=== PATIENT | male | born 1980 | race Hispanic/Latino ===

== ENCOUNTER 2022-04-13 20:23 | Emergency (ER) | payer BC ==
[2022-04-13] MEDS ORDERED: ASPIRIN 325 MG TAB ONE (21:14)
[2022-04-13] MEDS ORDERED: LORAZEPAM 1 MG TABLET ONE (21:14)
[2022-04-13] MEDS ORDERED: NA CHLORIDE 0.9% 1,000 ML ONE (21:14)
[2022-04-13 21:59] LABS: Absolute Lymphocytes (CBC) 2.2 K/uL (0.7-4.9); Hematocrit 46.7 % (39.6-49.0); Lymphocytes % 21.3 % (15.3-44.8); MCV 90.3 fL (80-100); MPV 8.5 fL (7.6-11.3); RBC Red Blood Cell Count 5.17 M/uL (4.33-5.43)
--- NOTE | 2022-04-13 22:45 | RAD REPORT ---
EXAM DESCRIPTION: Renato Single View04/13/2022 10:26 pm CLINICAL HISTORY: Chest pain COMPARISON: none FINDINGS: The lungs appear clear of acute infiltrate. The heart is normal size IMPRESSION: No acute abnormalities displayed
[2022-04-13 23:12] LABS: Albumin 3.8 g/dL (3.4-5.0); Bilirubin Total 0.4 mg/dL (0.2-1.0); Protein, Total 8.1 g/dL (6.4-8.2); Troponin High Sensitivity 7.6 pg/mL (<58.9)
[2022-04-13 23:15] LABS: Potassium 3.3 mmol/L (3.5-5.1)
--- NOTE | 2022-04-13 23:19 | ER ---
Nurse's Notes [facility] Name: Diaz Oglesby Age: 41 yrs Sex: Male : 1980 Arrival Date: 04/13/2022 Time: 20:26 Bed 7 Private MD: Diagnosis: Chest pain, unspecified Presentation: 04/13 20:45 Chief complaint: EMS states: Patient reportedly does cocaine and pt did cocaine this kd3 morning that might have been laced. Pt has been having hallucinations and chest pains. Family is concerned that he is having another heart attack. Family members do not know about his cocaine abuse. 20:45 Method Of Arrival: EMS: [facility] kd3 20:57 Coronavirus screen: Vaccine status: Patient reports receiving the 2nd dose of the covid kd3 vaccine. Ebola Screen: No symptoms or risks identified at this time. Initial Sepsis Screen: Does the patient meet any 2 criteria? No. Patient's initial sepsis screen is negative. Does the patient have a suspected source of infection? No. Patient's initial sepsis screen is negative. Risk Assessment: Do you want to hurt yourself or someone else? Patient reports no desire to harm self or others. Onset of symptoms was April 13, 2022. 20:57 Acuity: YOSI 3 kd3 Triage Assessment: 20:57 General: Appears uncomfortable, Behavior is cooperative, anxious. Pain: Complains of kd3 pain in chest. Neuro: Level of Consciousness is awake, alert, obeys commands, Oriented to person, place, time, situation. Cardiovascular: Patient's skin is warm and dry. Cardiovascular: Rhythm is sinus tachycardia. Respiratory: Airway is patent Trachea midline Respiratory effort is even, unlabored, Respiratory pattern is regular, symmetrical. Historical: - Allergies: 20:57 No Known Allergies; kd3 - Home Meds: 20:57 Lisinopril Oral [Active]; kd3 - PMHx: 20:57 None; kd3 - Immunization history:: Adult Immunizations up to date. - Social history:: Smoking status: unknown. - Family history:: not pertinent. Screenin:58 Abuse screen: Denies threats or abuse. Denies injuries from another. Nutritional kd3 screening: No deficits noted. Tuberculosis screening: No symptoms or risk factors identified. Fall Risk None identified. Assessment: 20:44 General: Appears uncomfortable, Behavior is cooperative, anxious. Pain: Complains of ha1 pain in chest Pain does not radiate. Pain at worst was 10 out of 10 on a pain scale. Quality of pain is described as pressure, Pain began suddenly. Neuro: Level of Consciousness is awake, alert, obeys commands, Oriented to person, place, time, situation. Cardiovascular: Reports chest pain, Capillary refill < 3 seconds Patient's skin is warm and dry. Rhythm is sinus tachycardia. Respiratory: Airway is patent Trachea midline Respiratory effort is even, unlabored, Respiratory pattern is regular, symmetrical. GI: Abdomen is non-distended, obese, Bowel sounds present X 4 quads. : No signs and/or symptoms were reported regarding the genitourinary system. EENT: No deficits noted. No signs and/or symptoms were reported regarding the EENT system. Derm: Skin is pink, warm \T\ dry. Musculoskeletal: Circulation, motion, and sensation intact. 21:44 Reassessment: Patient and/or family updated on plan of care and expected duration. Pain ha1 level reassessed. Patient is alert, oriented x 3, equal unlabored respirations, skin warm/dry/pink. 23:35 Reassessment: Patient states feeling better. General: Behavior is calm, cooperative. as6 Vital Signs: 20:44 BP 151 / 78; Pulse 108; Resp 21 S; Pulse Ox 100% on R/A; ha1 20:57 BP 151 / 78; Pulse 108; Resp 21; Temp 98.2(O); Pulse Ox 100% on R/A; Weight 129.73 kg; kd3 Height 5 ft. 9 in. (175.26 cm); Pain 3/10; 21:44 BP 146 / 84; Pulse 108; Resp 20 S; Pulse Ox 100% on R/A; ha1 23:35 BP 148 / 88; Pulse 86; Resp 24 S; Pulse Ox 100% on R/A; as6 20:57 Body Mass Index 42.23 (129.73 kg, 175.26 cm) kd3 ED Course: 20:26 Patient arrived in ED. bp1 20:46 Pankaj Santana, NANCY is Primary Nurse. as6 20:47 Yousuf Shipley MD is Attending Physician. rt 20:57 Triage completed. kd3 20:57 Arm band placed on right wrist. kd3 20:58 Patient has correct armband on for positive identification. Client placed on continuous kd3 cardiac and pulse oximetry monitoring. NIBP monitoring applied. 21:50 CBC with Diff Sent. ha1 21:50 CMP Sent. ha1 21:50 Troponin High Sensitivity Sent. ha1 21:50 Lipase Sent. ha1 22:28 Chest Single View XRAY In Process Unspecified. EDMS 23:34 No provider procedures requiring assistance completed. IV discontinued, intact, as6 bleeding controlled, No redness/swelling at site. Pressure dressing applied. Patient maintains SpO2 saturation greater than 95% on room air. Administered Medications: 21:44 Drug: NS 0.9% 1000 ml Route: IV; Rate: 1 bolus; Site: left antecubital; ha1 23:34 Follow up: Response: No adverse reaction; IV Status: Completed infusion; IV Intake: as6 1000ml 21:44 Drug: Aspirin 325 mg Route: PO; ha1 23:34 Follow up: Response: No adverse reaction as6 21:44 Drug: Ativan (LORazepam) 1 mg Route: IVP; Site: left antecubital; ha1 23:34 Follow up: Response: No adverse reaction as6 Medication: 23:34 VIS not applicable for this client. as6 Intake: 23:34 IV: 1000ml; Total: 1000ml. as6 Outcome: 23:18 Discharge ordered by . rt 23:34 Discharged to home ambulatory, with family. as6 23:34 Condition: stable 23:34 Discharge instructions given to patient, Instructed on discharge instructions, follow up and referral plans. Demonstrated understanding of instructions, follow-up care. 23:35 Patient left the ED. as6 Signatures: Dispatcher [employer] EDMS Bethany Aragon Ashby, RN RN as6 Kamini Melton RN RN kd3 Shannon Han RN RN ha1 Yousuf Shipley MD MD rt
--- NOTE | 2022-04-13 23:19 | EDPHYS ---
Physician Documentation [facility] Name: Diaz Oglesby Age: 41 yrs Sex: Male : 1980 Arrival Date: 04/13/2022 Time: 20:26 Bed 7 Private MD: ED Physician Yousuf Shipley HPI: 04/13 21:23 This 41 yrs old Male presents to ER via EMS with complaints of Chest Pain > 30 rt y/o, High Blood Pressure. 21:23 The patient or guardian reports chest pain that is located primarily in the substernal rt area. Onset: today. The pain does not radiate. The chest pain is described as aching. Duration: The patient or guardian reports a single episode, that is still ongoing, but improving. Modifying factors: the symptoms are aggravated by cocaine, alcohol. Severity of pain: At its worst the pain was moderate in the emergency department the pain has improved. Patient presents to the ED with chest pain. The patient states that he has been using cocaine as well as drinking a significant mount of alcohol. Patient states that the symptoms do seem to be improving provement. Still reports an anxiety, chest pounding sensation. Denies other acute complaints at this time, symptoms are moderate severity, no other aggravating alleviating factors.. Historical: - Allergies: 20:57 No Known Allergies; kd3 - Home Meds: 20:57 Lisinopril Oral [Active]; kd3 - PMHx: 20:57 None; kd3 - Immunization history:: Adult Immunizations up to date. - Social history:: Smoking status: unknown. - Family history:: not pertinent. ROS: 21:23 Cardiovascular: Positive for chest pain, Negative for edema. rt 21:23 Psych: Positive for anxiety, Negative for suicidal ideation. Exam: 21:23 Constitutional: This is a well developed, well nourished patient who is awake, alert, rt and in no acute distress. Head/Face: Normocephalic, atraumatic. Eyes: Pupils equal round and reactive to light, extra-ocular motions intact. Lids and lashes normal. Conjunctiva and sclera are non-icteric and not injected. Cornea within normal limits. Periorbital areas with no swelling, redness, or edema. ENT: Nares patent. No nasal discharge, no septal abnormalities noted. Tympanic membranes are normal and external auditory canals are clear. Oropharynx with no redness, swelling, or masses, exudates, or evidence of obstruction, uvula midline. Mucous membranes moist. Neck: Trachea midline, no thyromegaly or masses palpated, and no cervical lymphadenopathy. Supple, full range of motion without nuchal rigidity, or vertebral point tenderness. No Meningismus. Chest/axilla: Normal chest wall appearance and motion. Nontender with no deformity. No lesions are appreciated. Respiratory: Lungs have equal breath sounds bilaterally, clear to auscultation and percussion. No rales, rhonchi or wheezes noted. No increased work of breathing, no retractions or nasal flaring. Abdomen/GI: Soft, non-tender, with normal bowel sounds. No distension or tympany. No guarding or rebound. No evidence of tenderness throughout. Skin: Warm, dry with normal turgor. Normal color with no rashes, no lesions, and no evidence of cellulitis. MS/ Extremity: Pulses equal, no cyanosis. Neurovascular intact. Full, normal range of motion. Neuro: Awake and alert, GCS 15, oriented to person, place, time, and situation. Cranial nerves II-XII grossly intact. Motor strength 5/5 in all extremities. Sensory grossly intact. Cerebellar exam normal. Normal gait. 21:23 Cardiovascular: Tachycardic, regular rhythm, heart sounds normal. 21:23 ECG was reviewed by the Attending Physician. 21:23 Psych: mood Anxious affect congruent, no suicidal ideation. Vital Signs: 20:44 BP 151 / 78; Pulse 108; Resp 21 S; Pulse Ox 100% on R/A; ha1 20:57 BP 151 / 78; Pulse 108; Resp 21; Temp 98.2(O); Pulse Ox 100% on R/A; Weight 129.73 kg; kd3 Height 5 ft. 9 in. (175.26 cm); Pain 3/10; 21:44 BP 146 / 84; Pulse 108; Resp 20 S; Pulse Ox 100% on R/A; ha1 23:35 BP 148 / 88; Pulse 86; Resp 24 S; Pulse Ox 100% on R/A; as6 20:57 Body Mass Index 42.23 (129.73 kg, 175.26 cm) kd3 MDM: 20:47 Patient medically screened. rt 23:19 Differential diagnosis: acute pericarditis, coronary artery disease pneumonia, rt pneumothorax, pulmonary embolus. HEART Score: History: Slightly Suspicious (0), ECG: Normal (0), Age: < or = 45 years (0), Risk Factors: 1 or 2 risk factors (1), Troponin: < or = 1 x Normal Limit (0), Total Score = 1. 23:19 Data reviewed: vital signs, nurses notes, lab test result(s), EKG, radiologic studies. rt ED course: Presents to the ED with chest pain following the consumption of cocaine and alcohol. Symptoms have resolved with Ativan, aspirin in the ED. Vital signs have improved, heart rate improved to the 80s after Ativan administration. He is asymptomatic at the time of discharge. He has no acute ischemic changes on EKG, negative troponin. Given chronicity of symptoms, this is sufficient to rule out an acute coronary syndrome. Very low suspicion for pulmonary embolism. No further work-up indicated this time, patient is stable for outpatient care, return precautions discussed. 04/13 20:56 Order name: CBC with Diff; Complete Time: 22:45 rt 04/13 20:56 Order name: CMP; Complete Time: 23:16 rt 12 20:56 Order name: Troponin High Sensitivity; Complete Time: 23:16 rt 12 20:56 Order name: Chest Single View XRAY; Complete Time: 22:48 rt 04/13 20:56 Order name: Lipase; Complete Time: 23:16 rt 12 21:57 Order name: Labs - recollect needed: chemistry needed; Complete Time: 22:30 mw2 EC: Rate is 106 beats/min. Rhythm is regular, Sinus tachycardia with No ectopy. QRS [place] is rt Normal. UT interval is normal. QRS interval is normal. QT interval is normal. No Q waves. T waves are Normal. No ST changes noted. Clinical impression: Sinus tachycardia. Interpreted by me. Administered Medications: :44 Drug: NS 0.9% 1000 ml Route: IV; Rate: 1 bolus; Site: left antecubital; ha1 23:34 Follow up: Response: No adverse reaction; IV Status: Completed infusion; IV Intake: as6 1000ml :44 Drug: Aspirin 325 mg Route: PO; ha1 23:34 Follow up: Response: No adverse reaction as6 :44 Drug: Ativan (LORazepam) 1 mg Route: IVP; Site: left antecubital; ha1 23:34 Follow up: Response: No adverse reaction as6 Disposition Summary: 04/13/22 23:18 Discharge Ordered Location: Home rt Problem: new rt Symptoms: are resolved rt Condition: Stable rt Diagnosis - Chest pain, unspecified rt Followup: rt - With: Private Physician - When: 2 - 3 days - Reason: Discharge Instructions: - Discharge Summary Sheet rt - Nonspecific Chest Pain, Adult rt Forms: - Medication Reconciliation Form rt - Thank You Letter rt - Antibiotic Education rt - Prescription Opioid Use rt Signatures: Dispatcher [employer] EDMS Gisela Felipe mw2 Kamini Melton RN RN kd3 Shannon Han RN RN ha1 Yousuf Shipley MD MD rt Pankaj Santana RN as6 Corrections: (The following items were deleted from the chart) 22:21 21:07 Chest Single View ordered. EDSC EDMS
[2022-04-14 03:30] VITALS: O2SAT 100
[2022-04-14 03:31] VITALS: TEMP 98.2
[2022-04-14 03:34] VITALS: BP 148/88
--- NOTE | 2022-04-14 08:36 | EKG ---
Test Date: 2022-04-13 Test Time: 20:45:16 Medical Assistant Cardiology: ALYSA MEASUREMENT RESULTS: Intervals: Rate: 106 KS: 130 QRSD: 96 QT: 314 QTc: 417 [place]: P: 52 KS: 130 QRS: 66 T: 42 INTERPRETIVE STATEMENTS: Sinus tachycardia Otherwise normal ECG No previous ECG available for comparison Electronically Signed On 04-14-22 08:34:34 [employer] REPA[employer]ER by Jordan Au
== END 2022-04-13 23:35 | disposition home or self-care (01) ==
LOC: ER 20:23
DX: R07.89 Other chest pain (principal)
CPT/HCPCS: 96361; 93005; 85025; 36415; 84484; 83690; 80053; 71045; 96374; 99285; J7030